=== PATIENT | male | born 1990 | race Two or more races ===

== ENCOUNTER 2021-02-24 19:27 | Emergency (ER) | payer BC ==
[~2021-02-24] VITALS: Ht 175.3 cm; Wt 81.6 kg
[2021-02-24] MEDS ORDERED: KETOROLAC TROMETHAMINE 30 MG INJ IVP ONE (19:45)
[2021-02-24] MEDS ORDERED: ONDANSETRON 4 MG/2 ML VIAL IV ONE (19:45)
[2021-02-24] MEDS ORDERED: IV NORMAL SALINE 1000 ML BAG IV ONE (19:45)
[2021-02-24] MEDS ORDERED: PANTOPRAZOLE SODIUM 40 MG VIAL IV ONE (19:45)
[2021-02-24] MEDS ORDERED: PANTOPRAZOLE SODIUM 40 MG VIAL ONE (20:06)
[2021-02-24] MEDS ORDERED: ONDANSETRON 4 MG/2 ML VIAL ONE (20:06)
[2021-02-24] MEDS ORDERED: KETOROLAC TROMETHAMINE 30 MG INJ ONE (20:06)
[2021-02-24 20:15] LABS: HEMATOCRIT 45.7 % (36.7-47.1); MEAN CORPUSCULAR HEMOGLOBIN 30.7 uug (23.8-33.4); MEAN CORPUSCULAR VOLUME 88.3 fL (73.0-96.2); PLATELET COUNT (AUTO) 329 K/uL (152-348)
[2021-02-24 20:16] LABS: CARBON DIOXIDE 21 mmol/L (21-32); CHLORIDE 100 mmol/L (98-107); CREATININE 1.1 mg/dL (0.6-1.3); GLUCOSE 111 mg/dL (74-106); POTASSIUM 3.7 mmol/L (3.5-5.1); UREA NITROGEN, BLOOD 13 mg/dL (7-18)
[2021-02-24 20:17] LABS: ETHANOL < 3 MG/DL (0-0)
[2021-02-24 20:21] LABS: ALANINE AMINOTRANSFERASE 21 U/L (16-63); ALKALINE PHOSPHATASE 59 U/L (50-136); ASPARTATE AMINOTRANSFERASE 19 U/L (15-37); BILIRUBIN,DIRECT 0.1 mg/dL (0.0-0.2); BILIRUBIN,TOTAL 0.5 mg/dL (0.2-1.0); TOTAL PROTEIN, SERUM 8.7 g/dL (6.4-8.2)
[2021-02-24 20:22] LABS: ACETAMINOPHEN < 2.0 ug/mL (10-30)
[2021-02-24] MEDS ORDERED: OLANZAPINE 10 MG VIAL IM ONE ×2 (21:15→21:25)
--- NOTE | 2021-02-25 08:57 | NUR ---
PT FIFINSHE THE BREAKFAST WITH GOOD APETITE, URINE STILL PENDING
[2021-02-25 09:43] LABS: *BILIRUBIN,URIN NEGATIVE (NEGATIVE); *BLOOD, URINE NEGATIVE (NEGATIVE); *CLARITY,URINE CLEAR (CLEAR); *COLOR,URINE YELLOW (YELLOW); *KETONES,URINE NEGATIVE (NEGATIVE); *UROBILINOGEN,URINE 0.2 E.U./dl (NORMAL); LEUKOCYTE ESTERASE ,URINE NEGATIVE (NEGATIVE); NITRITE, URINE NEGATIVE (NEGATIVE); UGLUCOSE NEGATIVE (NEGATIVE)
[2021-02-25 09:50] LABS: *AMPHETAMINE, URINE NEGATIVE (NEGATIVE); *CANNABINOID, URINE NEGATIVE (NEGATIVE); *COCCAINE, URINE NEGATIVE (NEGATIVE); *OPIATE, URINE NEGATIVE (NEGATIVE); *PHENCYCLIDINE SCREEN,URINE NEGATIVE (NEGATIVE)
--- NOTE | 2021-02-25 10:00 | NUR ---
GT MONTALVO AT BEDSIDE. PT AXOXAlexis, TG ANY HALLUCINATION. Addendum: 02/25/21 at 1120 by YAS PT CO GENERAL BODY PAIN 10/21.
--- NOTE | 2021-02-25 10:45 | NUR ---
PT'S FATHER AT BEDSIDE.
[2021-02-25] MEDS ORDERED: ONDA4TAB11 PO (11:11)
[2021-02-25 11:18] VITALS: BP 101/77
--- NOTE | 2021-02-25 11:18 | NUR ---
Patient discharged to home in stable condition. Written and verbal after care instructions given. Patient verbalizes understanding of instructions. Stressed follow up or return to ER for worsening s/s.PT WALKS IN STEADY GAIT. PT DENEISA ANY N/V OR DIZZINESS AT THIS TIME. PT ACCOMPANIED BY FATHER. PT NOT DRIVING
[2021-02-25 14:36] LABS: BACTERIA,URINE NONE SEEN /HPF (NONE SEEN); MUCUS,URINE FEW /LPF (0-FEW); RBC,URINE 0-3 /HPF (0-3); SQUAMOUS EPITHELIAL CELL,UR FEW /HPF (NONE SEEN); URINE AMORPHOUS PHOSPHATES FEW /HPF; WBC,URINE 0-3 /HPF (0-3)
== END 2021-02-25 11:20 | disposition home or self-care (01) ==
LOC: ER 19:28
DX: F11.151 Opioid abuse with opioid-induced psychotic disorder with hallucinations (principal); F11.13 Opioid abuse with withdrawal; F41.9 Anxiety disorder, unspecified; F17.210 Nicotine dependence, cigarettes, uncomplicated; F12.90 Cannabis use, unspecified, uncomplicated
CPT/HCPCS: 36415; 71045; 80048; 80076; 80299; 80307; 80320; 81001; 82550; 85025; 96361; 96372; 96374; 96375; 99285; C9113; J1885; J2405; 93005; A4663; G0480; J2358; J7030